=== PATIENT | female | born 1970 | race Caucasian/White ===

== ENCOUNTER 2017-05-10 06:54 | Day surgery (SDC) | payer SELFPAY ==
[2017-05-08 13:44] VITALS: BMI 31.1
[2017-05-10] MEDS ORDERED: LIDOCAINE HCL 1%, 10 MG/ML (20ML VIAL) ONE (07:25)
[2017-05-10] MEDS ORDERED: EPINEPHrine/PF 1 MG/1 ML (1:1,000) AMPULE ONE (07:25)
[2017-05-10] MEDS ORDERED: HEPARIN NA (PORCINE) 5,000 UNITS/ML 1ML VIAL ONE (07:40)
[2017-05-10] MEDS ORDERED: ceFAZolin SODIUM 1 GM VIAL ONE ×3 (07:41→17:04)
[2017-05-10] MEDS ORDERED: LIDOCAINE HCL/PF 2% SDV 5ML VIAL ONE (07:41)
[2017-05-10] MEDS ORDERED: DEXAMETHASONE SOD PHOSPHATE 4 MG/1 ML VIAL ONE (07:41)
[2017-05-10] MEDS ORDERED: PROPOFOL 20 ML ONE ×2 (07:42)
[2017-05-10] MEDS ORDERED: HYDROmorphone HCL/PF 1 MG/ML VIAL (FOR PYXIS CHARGING ONLY) ONE (07:42)
[2017-05-10] MEDS ORDERED: ROCURONIUM BROMIDE 50 MG/5 ML VIAL ONE ×2 (07:42→09:34)
[2017-05-10] MEDS ORDERED: SUCCINYLCHOLINE CHLORIDE 200 MG/10 ML VIAL ONE (07:42)
[2017-05-10] MEDS ORDERED: MIDAZOLAM HCL 2 MG/2 ML SINGLE DOSE VIAL ONE (07:46)
[2017-05-10] MEDS ORDERED: HEPARIN NA (PORCINE) 5,000 UNITS/ML 1ML VIAL SQ ONE (07:50)
[2017-05-10] MEDS ORDERED: SCOPOLAMINE HYDROBROMIDE 1 PATCH PATCH.TD72 ONE (08:05)
[2017-05-10] MEDS: ceFAZolin SODIUM 1 GM VIAL IVPB ONE ×2 (08:40→17:10)
[2017-05-10] MEDS ORDERED: LIDOCAINE 1%/EPI 1:100000 (50 ML MULTI DOSE VIAL) ONE (08:48)
[2017-05-10] MEDS ORDERED: LIDOCAINE 1%/EPI 1:100000 (50 ML MULTI DOSE VIAL) INF ONE (08:51)
[2017-05-10] MEDS ORDERED: BUPIVACAINE HCL/PF 0.25% (2.5MG/ML) 10 ML VIAL ONE (10:52)
[2017-05-10] MEDS ORDERED: BUPIVACAINE HCL/PF 0.25% (2.5MG/ML) 10 ML VIAL IJ ONE (11:19)
[2017-05-10] MEDS ORDERED: ACETAMINOPHEN INJECTION 100 ML IVPB ONE (13:18)
[2017-05-10] MEDS ORDERED: HYDROmorphone HCL CARPU-JECT 1 MG/1 ML DISP.SYRIN IVPUSH PRN (14:07)
[2017-05-10] MEDS ORDERED: DEXAMETHASONE SOD PHOSPHATE 4 MG/1 ML VIAL IVPUSH PRN (14:08)
[2017-05-10] MEDS ORDERED: ONDANSETRON 4 MG/2 ML VIAL IVPUSH PRN (14:08)
[2017-05-10] MEDS ORDERED: PROMETHAZINE HCL 25 MG/1 ML VIAL IVPB PRN (14:08)
[2017-05-10] MEDS ORDERED: HYDROmorphone *PCA* 10MG/50ML DISP.SYRIN PCA SCH (14:15)
[2017-05-10] MEDS ORDERED: morphine CARPU-JECT 10 MG/1 ML DISP.SYRIN IVPUSH PRN (14:24)
[2017-05-10] MEDS ORDERED: ONDANSETRON 4 MG/2 ML VIAL IVPB PRN (14:24)
[2017-05-10] MEDS ORDERED: LORAZEPAM CARPU-JECT 2 MG/ML DISP.SYRIN IM PRN (14:29)
[2017-05-10] MEDS ORDERED: LACTATED RINGERS SOLUTION 1,000 ML IV SCH (14:30)
[2017-05-10] MEDS: LORAZEPAM CARPU-JECT 2 MG/ML DISP.SYRIN IVPUSH ONE ×2 (15:02→18:21)
[2017-05-10] MEDS ORDERED: HYDROmorphone HCL CARPU-JECT 2 MG/1 ML DISP.SYRIN ONE (17:07)
[2017-05-10] MEDS: CEFAZOLIN (PRE-DOCKED) 50 ML IVPB SCH ×2 (18:21→20:43)
[2017-05-10] MEDS ORDERED: morphine CARPU-JECT 4 MG/1 ML DISP.SYRIN IVPUSH PRN (18:41)
--- NOTE | 2017-05-10 20:46 | PN ---
Progress Note (short form) - Note Progress Note: post op check. Ambulating, urinating VSSAF pain controlled c/o tingling left hand but has good sensation to light touch in all neurologic distributions, normal motor. MARGIE output low, all tissues viable and soft with good cap refill and no collections. Elevate left hand.
--- NOTE | 2017-05-10 23:55 | OP ---
DATE OF OPERATION: 05/10/2017 PREOPERATIVE DIAGNOSIS: Abdominal lipodystrophy. POSTOPERATIVE DIAGNOSIS: Abdominal lipodystrophy. PROCEDURE: Abdominoplasty with bilateral flank liposuction. ANESTHESIA: General endotracheal anesthesia. SURGEON: Jori Osuna M.D. DESCRIPTION OF PROCEDURE: The patient was marked in the holding area preoperatively awake and aware of incisions and resulting scars. She was given 5,000 units of subcutaneous heparin preoperatively. Sequential compression stockings were applied. She was brought to the operating room and placed in a supine position. A Smallwood catheter was placed. Sequential compression stockings were turned on. She was given 2 g of Ancef preoperatively, prepped and draped in the standard surgical fashion. A timeout was called. The patient, procedure, side, and site verified. An incision was made along the inferior border of the pannus crease. Dissection carried down to the level of the abdominal wall fascia. At this point, dissection carried along the abdominal wall fascia to the level of the umbilicus where the umbilicus was then circumcised and developed on a fiber fatty stalk at the base of the fascia. The abdominoplasty flaps were then elevated to the costal margins bilaterally and xiphoid process in the midline. Hemostasis was vigorously achieved and midline ligation was performed, first with a layer of buried [id number] 1 Prolene sutures along the midline, followed by a running locking line of 1 Prolene suture, one below the umbilicus and a separate above the umbilicus. The flap was then thinned in a subscarpa's plane using scissors. The wound was copiously irrigated with normal saline and hemostasis was once again meticulously achieved. The patient is flexed 30 degrees where the flap is transpositioned and the excess skin and fat is then excised. The position at the umbilicus is marked. A Star-Trek pattern defect is made in the position of the new umbilicus and a core of fat is removed deep to this incision. The umbilicus is then converted into a Star-Trek pattern shape with the inferior flap of the abdominoplasty flap skin is then inset at the notch of the inferior base of the umbilicus. The umbilicus was then secured to its new position with a series of buried deep dermal 3-0 Monocryl suture followed by a series of interrupted 4-0 and 5-0 nylon sutures. Size 10 Flat MARGIE drains are brought out through the lateral extent of the incisions. The left more drain is placed along the inferior portion of the incision and the right more drain is placed along the superior more portion of the incision. The drains were secured with 2-0 silk drain sutures. Prior to closure, tumescent infiltration is then infiltrated with a wetting solution. The wetting solution is per each liter, 1 L of normal saline with an ampule of 1:100,000 epinephrine and 20 mL of 1% lidocaine plain. At this point, a total of 1,300 mL of wetting solution is infiltrated into the bilateral flanks and while this is being able to work, the abdominal closure is then performed. The abdominal closure was performed with a Inga's layer superficial fascial system series of buried 2-0 Vicryl suture, followed by a series of interrupted buried deep dermal 3-0 Monocryl sutures, followed by running subcuticular 3-0 Monocryl suture. All tissues are pink and viable with good capillary refill at the distal edges of the abdominoplasty flap. The drains are placed to bulb suction. ABD gauze and 4 x 4 gauze are applied. Steri-Strips are applied lengthwise along the incision line. An abdominal binder is placed and the patient is transferred to a hospital bed in a flexed position. She tolerated the procedure well and was transferred to recovery without complication. Please note that the lipoaspirate is 550 mL from the left flank and 550 mL from the right flank with a total lipoaspirate for the case of 1,100 mL. JORI OSUNA M.D. [id number]
[2017-05-11] MEDS: morphine CARPU-JECT 4 MG/1 ML DISP.SYRIN IVPUSH PRN ×2 (00:37→06:01)
[2017-05-11] MEDS: CEFAZOLIN (PRE-DOCKED) 50 ML IVPB SCH ×2 (02:12→09:08)
[2017-05-11 06:21] VITALS: BP 119/73; PULSE 88; TEMP 98.4
[2017-05-11] MEDS: BACITRACIN 30 GM TUBE TOPICAL OINTMENT TP SCH ×2 (07:37→10:01)
--- NOTE | 2017-05-11 09:05 | PATH ---
Surgical Pathology Report Patient Name: EDD LUCAS Med. Rec. #: [id number] /Age/Gender: 1970 (Age: 46) / F Account: [id number] Location: [facility] MED/SURG Taken: 05/10/2017 Received: 05/10/2017 Reported: 05/11/2017 Physicians: Jori Jones Specimen(s) Received ABDOMINAL SIKIN AND TISSUE Clinical History Cosmetic Final Diagnosis SKIN AND SOFT TISSUE, ABDOMEN, ABDOMINOPLASTY: UNREMARKABLE SKIN AND SUBCUTANEOUS ADIPOSE TISSUE (gross only). Electronically Signed Medhat Dillard M.D. Gross Description Received fresh labeled "abdominal skin and tissue," is a 2177 g aggregate of 2 yoder, triangular, unoriented portions of skin with underlying soft tissue measuring 37.0 x 26.0 x 4.5 cm in aggregate. The epidermal surfaces are unremarkable. Sectioning reveals unremarkable yellow, lobulated adipose tissue. No lesions or areas of hemorrhage or necrosis are identified. No sections are submitted, gross only. /05/10/2017 [facility]/05/10/2017
[2017-05-11] MEDS: HEPARIN NA (PORCINE) 5,000 UNITS/ML 1ML VIAL SQ SCH ×2 (09:14→10:01)
[2017-05-11] MEDS ORDERED: ACETAMINOPHEN 1000 MG/100 ML VIAL (NON FORMULARY) IVPB ONE (09:24)
[2017-05-11] MEDS ORDERED: IBUPROFEN 800 MG/8 ML IJ IVPB ONE (09:24)
--- NOTE | 2017-05-11 09:28 | PN ---
Progress Note (short form) - Note Progress Note: Post op day#1.S/P Abdominoplasty with liposuction under GA uneventful.Patient stable and c/o pain score of 8-10/10.So ordered Ofirmev and Cadolor ivpb.Patient to be DC today so avoiding narcotics.No any anesthesia related problem.Patient Dc from the anesthesia care.
--- NOTE | 2017-05-11 11:30 | PN ---
Progress Note (short form) - Note Progress Note: Al ltissues viable, healing well. MARGIE output minimal, VSS AF Hand symptoms resolved. Ambulating, using IS OK for discharge.
== END 2017-05-11 13:04 | disposition home or self-care (01) ==
LOC: JASU-SURG 06:54 → JASUSAT 06:54 → J8W 17:50 → JASUSAT 05-11 13:04
PROVIDERS: ATTEND Plastic Surgery
CPT/HCPCS: 84703; 88300-TC; 94760; J1644

== ENCOUNTER 2017-06-18 17:46 | Inpatient (IN) | payer OTHER ==
[2017-06-18] MEDS ORDERED: SODIUM CHLORIDE 1,000 ML IV STA (18:38)
[2017-06-18] MEDS ORDERED: ONDANSETRON 4 MG/2 ML VIAL IVPUSH ONE (18:42)
--- NOTE | 2017-06-18 18:48 | PDOC ---
History of Present Illness - General Chief Complaint: Diarrhea Stated Complaint: PCP ADMIT Time Seen by Provider: 06/18/17 18:38 History Source: Patient - History of Present Illness Timing/Duration: reports: other Quality: reports: severe Past History - Past Medical History Allergies/Adverse Reactions: Allergies Allergy/AdvReac Type Severity Reaction Status Date / Time No Known Allergies Allergy Verified 06/18/17 17:51 Home Medications: Ambulatory Orders Acetaminophen [Tylenol] 650 mg PO PRN PRN 05/08/17 Lorazepam 1 mg PO PRN PRN 05/08/17 Clindamycin [Cleocin -] 300 mg PO TID 05/10/17 Omeprazole 20 mg PO DAILY 05/10/17 Ranitidine [Zantac -] 150 mg PO DAILY 05/10/17 Anemia: No Asthma: No Cancer: No Cardiac Disorders: No CVA: No COPD: No CHF: No Dementia: No Diabetes: (BORDERLINE) GI Disorders: Yes (GERD) Disorders: No HTN: No Hypercholesterolemia: No Liver Disease: No Seizures: No Thyroid Disease: No - Surgical History Abdominal Surgery: Yes (POLYPS REMOVED FROM STOMACH) Appendectomy: No Cardiac Surgery: No Cholecystectomy: No Lung Surgery: No Neurologic Surgery: No Orthopedic Surgery: No - Psycho/Social/Smoking Cessation Hx Anxiety: No Suicidal Ideation: No Smoking Status: No Smoking History: Never smoked Have you smoked in the past 12 months: No Number of Cigarettes Smoked Daily: 0 Information on smoking cessation initiated: No Hx Alcohol Use: Yes (SOCIALLY) Drug/Substance Use Hx: No Substance Use Type: Alcohol Hx Substance Use Treatment: No Review of Systems - Review of Systems Constitutional: No: Chills, Fever ABD/GI: Yes: Diarrhea, Nausea, Vomiting. No: Blood Streaked Bowels, Rectal Bleeding, Abdominal cramping, Tarry Stools : No: Dysuria *Physical Exam - Vital Signs Last Vital Signs Temp Pulse Resp BP Pulse Ox 98.1 F 95 H 18 105/76 99 06/18/17 17:47 06/18/17 17:47 06/18/17 17:47 06/18/17 17:47 06/18/17 17:47 - Physical Exam General Appearance: Yes: Appropriately Dressed, Mild Distress HEENT: positive: Normal Voice Neck: positive: Supple Respiratory/Chest: negative: Respiratory Distress Gastrointestinal/Abdominal: positive: Normal Bowel Sounds, Soft, Other (no significant tenderness). negative: Guarding, Rebound Musculoskeletal: negative: CVA Tenderness Integumentary: positive: Dry, Warm Neurologic: positive: Fully Oriented, Alert, Normal Mood/Affect Medical Decision Making - Medical Decision Making 06/18/17 18:43 46 -year-old female status post tummy tuck surgery last month complicated by c. difficile, completed course of po flagyl (of note, did not tolerate medication well), and was feeling better until 2 days ago when symptoms recurred. Complaining of numerous episodes of non-bloody watery diarrhea with intractable nausea, vomiting. Continues to have some post-op abdominal discomfort that has not changed from baseline. No f/c. 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 Of note, pt had CT 06/06 without SBO or other acute pathology. No CT needed in ED. A/w pmd c/s to admit 06/18/17 18:53 06/18/17 18:56 Case d/w Dr Quintero and pt admitted to Dr Fletcher. 06/18/17 18:57 Signed out to CHRISTOPHER Hargrove pending labs *DC/Admit/Observation/Transfer Diagnosis at time of Disposition: Diarrhea Qualifiers: Diarrhea type: unspecified type Qualified Code(s): R19.7 - Diarrhea, unspecified - Discharge Dispostion Condition at time of disposition: Fair Admit: Yes - Referrals Referrals: Clayton Fletcher MD [Primary Care Provider] -
[2017-06-18] MEDS ORDERED: METRONIDAZOLE 500 MG PREMIXED 100 ML IVPB ONE ×2 (18:50→19:29)
[2017-06-18] MEDS ORDERED: ONDANSETRON 4 MG/2 ML VIAL ONE (19:29)
[2017-06-18 19:54] LABS: BASOPHIL 1.1 % (0-2.0); EOSINOPHIL 2.9 % (0-4.5); MCH 28.8 pg (25.7-33.7); MCHC 32.9 g/dl (32.0-36.0); MEAN CELL VOLUME 87.5 fl (80-96); MEAN PLT VOLUME 7.9 fl (7.5-11.1); PLATELET COUNT 358 K/MM3 (134-434); RDW 13.7 % (11.6-15.6); WHITE BLOOD COUNT 7.8 K/mm3 (4.0-10.0)
[2017-06-18 20:06] LABS: INR 1.05 (0.82-1.09); PROTHROMBIN TIME (PATIENT) 11.6 SEC (9.98-11.88)
[2017-06-18 20:26] LABS: ALBUMIN 3.2 g/dl (3.4-5.0); ALK PHOS 84 U/L (45-117); ANION GAP 6 (8-16); BILIRUBIN,TOTAL 0.2 mg/dL (0.2-1.0); CALCIUM 8.6 mg/dL (8.5-10.1); CO2 27 mmol/L (21-32); CREATININE 0.7 mg/dL (0.55-1.02); GLUCOSE,RANDOM 108 mg/dL (74-106); SGOT/AST 13 U/L (15-37); SGPT/ALT 16 U/L (12-78)
[2017-06-18] MEDS ORDERED: VANCOMYCIN 250 MG/5 ML ORAL SOLUTION PO ONE (20:30)
[2017-06-18 20:51] LABS: URINE APPEARANCE CLEAR; URINE BILIRUBIN NEGATIVE (NEGATIVE); URINE BLOOD 2+ (NEGATIVE); URINE COLOR COLORLESS; URINE GLUCOSE (UA) NEGATIVE (NEGATIVE); URINE KETONE NEGATIVE (NEGATIVE); URINE LEUK ESTERASE NEGATIVE (NEGATIVE); URINE NITRITE NEGATIVE (NEGATIVE); URINE PROTEIN NEGATIVE (NEGATIVE); URINE UROBILINOGEN NEGATIVE mg/dL (0.2-1.0)
[2017-06-18] MEDS ORDERED: ACETAMINOPHEN 325 MG TABLET (FP) PO PRN (20:58)
[2017-06-18] MEDS ORDERED: ONDANSETRON 4 MG/2 ML VIAL IVPB PRN (20:58)
[2017-06-18 21:12] LABS: URINE RBC 4 /hpf (0-3); URINE WBC <1 /hpf (3-5)
[2017-06-18] MEDS: D5-1/2NS+20 MEQ KCL - 1,000 ML IV SCH (21:54)
[2017-06-18 23:13] VITALS: BMI 28.9
[2017-06-19] MEDS: VANCOMYCIN 250 MG/5 ML ORAL SOLUTION PO SCH ×4 (00:11→17:56)
[2017-06-19] MEDS: HEPARIN NA (PORCINE) 5,000 UNITS/ML 1ML VIAL SQ SCH ×3 (00:15→21:38)
[2017-06-19] MEDS: METRONIDAZOLE 500 MG PREMIXED 100 ML IVPB SCH ×2 (01:42→09:02)
[2017-06-19 07:15] LABS: BASOPHIL 0.9 % (0-2.0); EOSINOPHIL 3.6 % (0-4.5); MCH 29.7 pg (25.7-33.7); MCHC 33.6 g/dl (32.0-36.0); MEAN CELL VOLUME 88.5 fl (80-96); MEAN PLT VOLUME 7.8 fl (7.5-11.1); NEUTROPHILS 53.8 % (42.8-82.8); PLATELET COUNT 351 K/MM3 (134-434); RDW 13.8 % (11.6-15.6); WHITE BLOOD COUNT 7.4 K/mm3 (4.0-10.0)
[2017-06-19 07:48] LABS: ALBUMIN 3.2 g/dl (3.4-5.0); ALK PHOS 74 U/L (45-117); ANION GAP 4 (8-16); BILIRUBIN,TOTAL 0.3 mg/dL (0.2-1.0); CALCIUM 8.6 mg/dL (8.5-10.1); CO2 30 mmol/L (21-32); CREATININE 0.6 mg/dL (0.55-1.02); GLUCOSE,RANDOM 101 mg/dL (74-106); SGOT/AST 11 U/L (15-37); SGPT/ALT 14 U/L (12-78); TOT PROT 6.8 g/dl (6.4-8.2)
[2017-06-19] MEDS: PANTOPRAZOLE 40 MG TABLET (FP) PO SCH (09:03)
--- NOTE | 2017-06-19 09:15 | EKG ---
Test Reason : Blood Pressure : / mmHG Vent. Rate : 068 BPM Atrial Rate : 068 BPM P-R Int : 162 ms QRS Dur : 080 ms QT Int : 408 ms P-R-T Axes : 060 -22 -01 degrees QTc Int : 433 ms NORMAL SINUS RHYTHM NORMAL ECG NO PREVIOUS ECGS AVAILABLE Confirmed by NATO RHODES, VIV ([id number]) on 06/19/2017 9:15:10 AM Referred By: FLORENTIN ALMANZAR Confirmed By:VIV DUTTON MD
[2017-06-19] MEDS: D5-1/2NS+20 MEQ KCL - 1,000 ML IV SCH ×2 (14:27→21:37)
--- NOTE | 2017-06-19 15:42 | CONSULT ---
Consult Consult Specialty:: infectious disease Referred by:: Reason for Consultation:: dirrhoea - History of Present Illness Chief Complaint: dirrhoea History of Present Illness: 46 -year-old female status post tummy tuck surgery last month complicated by c. difficile, completed course of po flagyl according to the patient she did not tolerate but she ended up completing the course patient now since monday starting having dirrhoea and was again to admitted with profuse she was started on flagyl and vanco this is her 2nd episode now after being treated once her stool has been send for ova and parasite - History Source History Provided By: Patient Limitations to Obtaining History: No Limitations - Past Medical History ...LMP: 04/17/17 ...: No - Alcohol/Substance Use Hx Alcohol Use: Yes (SOCIALLY) - Smoking History Smoking history: Never smoked Have you smoked in the past 12 months: No Aproximately how many cigarettes per day: 0 Home Medications - Allergies Allergies/Adverse Reactions: Allergies Allergy/AdvReac Type Severity Reaction Status Date / Time No Known Allergies Allergy Verified 06/18/17 17:51 - Home Medications Home Medications: Ambulatory Orders Acetaminophen [Tylenol] 650 mg PO PRN PRN 05/08/17 Lorazepam 1 mg PO PRN PRN 05/08/17 Clindamycin [Cleocin -] 300 mg PO TID 05/10/17 Omeprazole 20 mg PO DAILY 05/10/17 Ranitidine [Zantac -] 150 mg PO DAILY 05/10/17 Review of Systems - Review of Systems Constitutional: reports: Weakness Eyes: reports: No Symptoms HENT: reports: No Symptoms Neck: reports: No Symptoms Cardiovascular: reports: No Symptoms Respiratory: reports: No Symptoms Gastrointestinal: reports: Diarrhea Genitourinary: reports: No Symptoms Musculoskeletal: reports: No Symptoms Integumentary: reports: No Symptoms Neurological: reports: No Symptoms Endocrine: reports: No Symptoms Hematology/Lymphatic: reports: No Symptoms Psychiatric: reports: No Symptoms Physical Exam Vital Signs: Vital Signs Temperature 97.9 F 06/19/17 14:26 Pulse Rate 59 L 06/19/17 14:26 Respiratory Rate 20 06/19/17 14:26 Blood Pressure 94/54 06/19/17 14:26 O2 Sat by Pulse Oximetry (%) 98 06/19/17 09:00 Constitutional: Yes: Well Nourished, No Distress, Calm Eyes: Yes: Conjunctiva Clear HENT: Yes: Atraumatic Neck: Yes: Supple, Trachea Midline Respiratory: Yes: Regular, CTA Bilaterally Gastrointestinal: Yes: Normal Bowel Sounds, Soft Musculoskeletal: Yes: WNL Extremities: Yes: WNL Wound/Incision: Yes: Clean/Dry Neurological: Yes: Alert, Oriented Psychiatric: Yes: Alert, Oriented Labs: CBC, BMP 06/19/17 05:40 06/19/17 05:40 Assessment/Plan patient with diorrhoea again i think has chances of having cdiff i ahve ordered cdiff studies r/o recurrent cdiff dirrhoea plan will stop flagyl continue vanco await for all results rest as per primary
--- NOTE | 2017-06-19 17:03 | HP ---
Admitting History and Physical - Primary Care Physician PCP: Clayton Fletcher - Admission Chief Complaint: DIARRHEA/+CDIFF History of Present Illness: 46 -year-old female status post tummy tuck surgery last month complicated by c. difficile, completed course of po flagyl (of note, did not tolerate medication well), and was feeling better until 2 days ago when symptoms recurred. Complaining of numerous episodes of non-bloody watery diarrhea with intractable nausea, vomiting. Continues to have some post-op abdominal discomfort that has not changed from baseline. No f/c. 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 development professor, Dr Cho, sent her in for admission for IV abx History Source: Patient - Past Medical History ...LMP: 04/17/17 ...: No - Smoking History Smoking history: Never smoked Have you smoked in the past 12 months: No Aproximately how many cigarettes per day: 0 - Alcohol/Substance Use Hx Alcohol Use: Yes (SOCIALLY) Home Medications - Allergies Allergies/Adverse Reactions: Allergies Allergy/AdvReac Type Severity Reaction Status Date / Time No Known Allergies Allergy Verified 06/18/17 17:51 - Home Medications Home Medications: Ambulatory Orders Acetaminophen [Tylenol] 650 mg PO PRN PRN 05/08/17 Lorazepam 1 mg PO PRN PRN 05/08/17 Clindamycin [Cleocin -] 300 mg PO TID 05/10/17 Omeprazole 20 mg PO DAILY 05/10/17 Ranitidine [Zantac -] 150 mg PO DAILY 05/10/17 Review of Systems - Review of Systems Constitutional: reports: Malaise Eyes: reports: No Symptoms HENT: reports: No Symptoms Neck: reports: No Symptoms Cardiovascular: reports: No Symptoms Respiratory: reports: No Symptoms Gastrointestinal: reports: Diarrhea Musculoskeletal: reports: No Symptoms Integumentary: reports: No Symptoms Neurological: reports: No Symptoms Endocrine: reports: No Symptoms Hematology/Lymphatic: reports: No Symptoms Psychiatric: reports: No Symptoms Physical Examination Vital Signs: Vital Signs Temperature 97.9 F 06/19/17 14:26 Pulse Rate 59 L 06/19/17 14:26 Respiratory Rate 20 06/19/17 14:26 Blood Pressure 94/54 06/19/17 14:26 O2 Sat by Pulse Oximetry (%) 98 06/19/17 09:00 Constitutional: Yes: Mild Distress Eyes: Yes: WNL HENT: Yes: WNL Neck: Yes: WNL Cardiovascular: Yes: WNL Respiratory: Yes: WNL Gastrointestinal: Yes: Distention, Tenderness Renal/: Yes: WNL Musculoskeletal: Yes: WNL Extremities: Yes: WNL Edema: No Peripheral Pulses WNL: Yes Integumentary: Yes: WNL Wound/Incision: Yes: Clean/Dry Neurological: Yes: WNL ...Motor Strength: WNL Psychiatric: Yes: WNL Labs: CBC, BMP 06/19/17 05:40 06/19/17 05:40 Problem List - Problems (1) Diarrhea Code(s): R19.7 - DIARRHEA, UNSPECIFIED Qualifiers: Diarrhea type: infectious Qualified Code(s): A09 - Infectious gastroenteritis and colitis, unspecified (2) Headache Code(s): R51 - HEADACHE Qualifiers: Headache type: unspecified Assessment/Plan IV ABX ID CONSULT CHECK STOOL CX IVF
[2017-06-19] MEDS: LACTOBACILLUS ACIDOPHILUS 1 EACH TAB (FP) PO SCH (17:31)
--- NOTE | 2017-06-19 18:01 | CON.GI ---
Consult Consult Specialty:: gastroenterology Referred by:: Clayton Fletcher - History of Present Illness History of Present Illness: 46 y/o female s/p tummy tuck surgery April. @ days later developed diarrhea. SHe saw Dr Hamm first of May and was started on Flagyl 500mg qid for 10 days which provided completer relief of her symptoms. Dats later she developed persistent diarrhea 10times per day, non bloody associated with abdominaql pain and poor appetite. - History Source History Provided By: Patient - Past Medical History ...LMP: 04/17/17 ...: No - Alcohol/Substance Use Hx Alcohol Use: Yes (SOCIALLY) - Smoking History Smoking history: Never smoked Have you smoked in the past 12 months: No Aproximately how many cigarettes per day: 0 Home Medications - Allergies Allergies/Adverse Reactions: Allergies Allergy/AdvReac Type Severity Reaction Status Date / Time No Known Allergies Allergy Verified 06/18/17 17:51 - Home Medications Home Medications: Ambulatory Orders Acetaminophen [Tylenol] 650 mg PO PRN PRN 05/08/17 Lorazepam 1 mg PO PRN PRN 05/08/17 Clindamycin [Cleocin -] 300 mg PO TID 05/10/17 Omeprazole 20 mg PO DAILY 05/10/17 Ranitidine [Zantac -] 150 mg PO DAILY 05/10/17 Review of Systems - Review of Systems Constitutional: denies: Fever Eyes: denies: Blurred Vision HENT: denies: Difficult Swallowing Neck: denies: Decreased ROM Cardiovascular: denies: Chest Pain Respiratory: denies: Cough Gastrointestinal: reports: Abdominal Pain (--resolved), Diarrhea (--improved tpday after receiving Flagyl and Vancomycin) Physical Exam-GI Vital Signs: Vital Signs Temperature 97.9 F 06/19/17 14:26 Pulse Rate 59 L 06/19/17 14:26 Respiratory Rate 20 06/19/17 14:26 Blood Pressure 94/54 06/19/17 14:26 O2 Sat by Pulse Oximetry (%) 98 06/19/17 09:00 Constitutional: Yes: Well Nourished, Poor Hygeine HENT: Yes: Atraumatic Neck: Yes: Supple Cardiovascular: Yes: Regular Rate and Rhythm Respiratory: Yes: Regular, CTA Bilaterally ...Palpate: Yes: Soft. No: Firm/Rigid, Guarding, Hepatomegaly, Mass, Pulsatile Mass, Splenomegaly, Tenderness Labs: CBC, BMP 06/19/17 05:40 06/19/17 05:40 INR, PTT INR 1.05 (0.82-1.09) 06/18/17 19:34 Problem List - Problems (1) Clostridium difficile colitis Assessment/Plan: --relapsing R> will need 4 weeks of vancomycin 250mg qid then every other day for 1 week then --Monday low fiber , lacotse free diet Code(s): A04.7 - ENTEROCOLITIS DUE TO CLOSTRIDIUM DIFFICILE
[2017-06-19] MEDS ORDERED: VANCOMYCIN 250 MG/5 ML ORAL SOLUTION PO ONE (18:51)
[2017-06-19] MEDS: IBUPROFEN 400 MG TABLET (FP) PO PRN (21:38)
[2017-06-20] MEDS: VANCOMYCIN 250 MG/5 ML ORAL SOLUTION PO SCH ×4 (00:14→18:13)
[2017-06-20] MEDS: D5-1/2NS+20 MEQ KCL - 1,000 ML IV SCH ×3 (02:45→22:10)
[2017-06-20] MEDS: PANTOPRAZOLE 40 MG TABLET (FP) PO SCH (10:29)
[2017-06-20] MEDS: HEPARIN NA (PORCINE) 5,000 UNITS/ML 1ML VIAL SQ SCH ×2 (10:29→21:05)
[2017-06-20] MEDS: LACTOBACILLUS ACIDOPHILUS 1 EACH TAB (FP) PO SCH (10:29)
[2017-06-20] MEDS: IBUPROFEN 400 MG TABLET (FP) PO PRN ×2 (12:47→20:56)
--- NOTE | 2017-06-20 14:43 | PN ---
Progress Note, Physician History of Present Illness: stable still has loose bowel movement - Current Medication List Current Medications: Active Medications Acetaminophen (Tylenol -) 650 mg PO Q4H PRN PRN Reason: FEVER OR PAIN Last Admin: 06/19/17 11:01 Dose: 650 mg Heparin Sodium (Porcine) (Heparin -) 5,000 unit SQ BID [facility] Last Admin: 06/20/17 10:29 Dose: Not Given Potassium Chloride/Dextrose/Sod Cl (D5-1/2ns+20 Meq Kcl -) 1,000 mls @ 75 mls/ hr IV ASDIR [facility] Last Admin: 06/20/17 02:45 Dose: 75 mls/hr Ibuprofen (Motrin -) 400 mg PO Q6H PRN PRN Reason: PAIN Last Admin: 06/20/17 12:47 Dose: 400 mg Lactobacillus Acidophilus (Bacid -) 1 tab PO DAILY [facility] Last Admin: 06/20/17 10:29 Dose: Not Given Ondansetron HCl (Zofran Injection) 4 mg IVPB Q6H PRN PRN Reason: NAUSEA Pantoprazole Sodium (Protonix -) 40 mg PO DAILY [facility] Last Admin: 06/20/17 10:29 Dose: 40 mg Vancomycin HCl (Vancomycin Oral Solution) 250 mg PO Q6HPO [facility] Last Admin: 06/20/17 11:55 Dose: 250 mg - Objective Vital Signs: Vital Signs Temperature 98.6 F 06/20/17 14:01 Pulse Rate 72 06/20/17 14:01 Respiratory Rate 18 06/20/17 14:01 Blood Pressure 103/68 06/20/17 14:01 O2 Sat by Pulse Oximetry (%) 100 06/20/17 09:00 Constitutional: Yes: No Distress, Calm Cardiovascular: Yes: Regular Rate and Rhythm Respiratory: Yes: Regular, CTA Bilaterally Gastrointestinal: Yes: Normal Bowel Sounds, Soft Musculoskeletal: Yes: WNL Extremities: Yes: WNL Neurological: Yes: Alert, Oriented Psychiatric: Yes: Alert, Oriented Labs: CBC, BMP 06/19/17 05:40 06/19/17 05:40 INR, PTT INR 1.05 (0.82-1.09) 06/18/17 19:34 Assessment/Plan patient with diorrhoea again i think has chances of having cdiff i ahve ordered cdiff studies recurrent cdiff dirrhoea plan continue vanco monitor loose stools await for all cx rest as per the team
--- NOTE | 2017-06-20 16:39 | PN ---
Progress Note, Physician Chief Complaint: AWAKE ALERT LESS DIARRHEA - Current Medication List Current Medications: Active Medications Acetaminophen (Tylenol -) 650 mg PO Q4H PRN PRN Reason: FEVER OR PAIN Last Admin: 06/19/17 11:01 Dose: 650 mg Heparin Sodium (Porcine) (Heparin -) 5,000 unit SQ BID [facility] Last Admin: 06/20/17 10:29 Dose: Not Given Potassium Chloride/Dextrose/Sod Cl (D5-1/2ns+20 Meq Kcl -) 1,000 mls @ 75 mls/ hr IV ASDIR [facility] Last Admin: 06/20/17 02:45 Dose: 75 mls/hr Ibuprofen (Motrin -) 400 mg PO Q6H PRN PRN Reason: PAIN Last Admin: 06/20/17 12:47 Dose: 400 mg Lactobacillus Acidophilus (Bacid -) 1 tab PO DAILY [facility] Last Admin: 06/20/17 10:29 Dose: Not Given Ondansetron HCl (Zofran Injection) 4 mg IVPB Q6H PRN PRN Reason: NAUSEA Pantoprazole Sodium (Protonix -) 40 mg PO DAILY [facility] Last Admin: 06/20/17 10:29 Dose: 40 mg Vancomycin HCl (Vancomycin Oral Solution) 250 mg PO Q6HPO [facility] Last Admin: 06/20/17 11:55 Dose: 250 mg - Objective Vital Signs: Vital Signs Temperature 98.6 F 06/20/17 14:01 Pulse Rate 72 06/20/17 14:01 Respiratory Rate 18 06/20/17 14:01 Blood Pressure 103/68 06/20/17 14:01 O2 Sat by Pulse Oximetry (%) 100 06/20/17 09:00 Constitutional: Yes: Mild Distress Eyes: Yes: WNL HENT: Yes: WNL Neck: Yes: WNL Cardiovascular: Yes: WNL Respiratory: Yes: WNL Gastrointestinal: Yes: Tenderness Genitourinary: Yes: WNL Musculoskeletal: Yes: WNL Extremities: Yes: WNL Edema: No Peripheral Pulses WNL: Yes Integumentary: Yes: WNL Wound/Incision: Yes: Clean/Dry Neurological: Yes: WNL ...Motor Strength: WNL Psychiatric: Yes: WNL Labs: CBC, BMP 06/19/17 05:40 06/19/17 05:40 INR, PTT INR 1.05 (0.82-1.09) 06/18/17 19:34 Problem List - Problems (1) Diarrhea Code(s): R19.7 - DIARRHEA, UNSPECIFIED Qualifiers: Diarrhea type: infectious Qualified Code(s): A09 - Infectious gastroenteritis and colitis, unspecified (2) Headache Code(s): R51 - HEADACHE Qualifiers: Headache type: unspecified Assessment/Plan CDIFF COLITIS ON VANCO PROBIOTIC GI EVAL APPRECIATED PLASTIC SX FOLLOW UP
--- NOTE | 2017-06-20 18:27 | PN ---
GI Progress Note Subjective: diarrhea is less tolerating vanco po - Objective Vital Signs: Vital Signs Temperature 98.6 F 06/20/17 14:01 Pulse Rate 72 06/20/17 14:01 Respiratory Rate 18 06/20/17 14:01 Blood Pressure 103/68 06/20/17 14:01 O2 Sat by Pulse Oximetry (%) 100 06/20/17 09:00 Constitutional: Well Nourished, Poor Hygeine HENT: Yes: Atraumatic Neck: Yes: Supple Cardiovascular: Yes: Regular Rate and Rhythm Respiratory: Yes: CTA Bilaterally ...Palpate: Yes: Soft. No: Firm/Rigid, Hepatomegaly, Mass, Pulsatile Mass, Splenomegaly, Tenderness Labs: CBC, BMP 06/19/17 05:40 06/19/17 05:40 INR, PTT INR 1.05 (0.82-1.09) 06/18/17 19:34 Problem List - Problems (1) Clostridium difficile colitis Assessment/Plan: --resolving R> will need social work professor to help approve medication to avoid readmission Code(s): A04.7 - ENTEROCOLITIS DUE TO CLOSTRIDIUM DIFFICILE
[2017-06-21] MEDS ORDERED: PT OWN MED DRAWER 7, Y5N ONE ×2 (00:21→06:01)
[2017-06-21] MEDS: VANCOMYCIN 250 MG/5 ML ORAL SOLUTION PO SCH ×3 (00:25→11:29)
[2017-06-21] MEDS: D5-1/2NS+20 MEQ KCL - 1,000 ML IV SCH (06:06)
[2017-06-21 06:14] VITALS: PULSE 73
[2017-06-21 08:30] VITALS: BP 118/72; TEMP 98.2
[2017-06-21] MEDS: HEPARIN NA (PORCINE) 5,000 UNITS/ML 1ML VIAL SQ SCH (10:00)
[2017-06-21] MEDS: LACTOBACILLUS ACIDOPHILUS 1 EACH TAB (FP) PO SCH (10:00)
[2017-06-21] MEDS: PANTOPRAZOLE 40 MG TABLET (FP) PO SCH (10:00)
--- NOTE | 2017-06-21 10:24 | CONSULT ---
- Consultation REQUESTING PROVIDER: Meredith Jones MD CONSULT REQUEST: We have been asked to surgically evaluate this patient for ? RLQ abdominal pain. PCP:Clayton Fletcher HISTORY OF PRESENT ILLNESS: 46 y/o female had panniculectomy and liposuction 05/13; she developed C. diff colitis post op and ? abdominal pain ? ; w/u at [facility] was negative for intrabdominal pathology; she was recently admitted to [facility] w/ recurrent/persistent symptoms c/w C. diff colitis; she was again c/o "RLQ pain ". She actually c/o pain in the right lateral aspect of her panniculectomy scar close to the anterior superior iliac spine and extending posterolaterally; she denies n/v/cramps or anyother GI c/o. She is eaying and moving her bowels and states her diarrhea has abated. PMHx: PSHx: C-S and as above Home Medications Medication Instructions Recorded Acetaminophen [Tylenol] 650 mg PO PRN PRN 05/08/17 Lorazepam 1 mg PO PRN PRN 05/08/17 Clindamycin [Cleocin -] 300 mg PO TID 05/10/17 Omeprazole 20 mg PO DAILY 05/10/17 Ranitidine [Zantac -] 150 mg PO DAILY 05/10/17 Allergies Allergy/AdvReac Type Severity Reaction Status Date / Time No Known Allergies Allergy Verified 06/18/17 17:51 REVIEW OF SYSTEMS: as above only PHYSICAL EXAM: GENERAL: Awake, alert, and fully oriented, in no acute distress. HEAD: Normal with no signs of trauma. EYES: sclera anicteric, NECK: Normal ROM, supple without lymphadenopathy, JVD, or masses. ABDOMEN: Soft, nontender, not distended, no guarding, no rebound, no masses. No organomegaly. Healed surgical scars; no hernias; no signs of an acute surgical abdomen. MUSCULOSKELETAL: Normal ROM at all joints. No bony deformities or tenderness. No CVA tenderness. UPPER EXTREMITIES: 2+ pulses, warm, well-perfused. No cyanosis. Cap refill <2 seconds. No peripheral edema. LOWER EXTREMITIES: 2+ pulses, warm, well-perfused. No calf tenderness. No peripheral edema. NEUROLOGICAL: Normal speech, gait not observed. PSYCH: Cooperative. Good eye contact. Appropriate mood and affect. SKIN: Warm, dry, normal turgor, no rashes or lesions noted. Vital Signs Temperature 98.2 F 06/21/17 08:29 Pulse Rate 73 06/21/17 08:29 Respiratory Rate 16 06/21/17 08:29 Blood Pressure 118/72 06/21/17 08:29 O2 Sat by Pulse Oximetry (%) 96 06/20/17 21:00 Lab Results WBC 7.4 K/mm3 (4.0-10.0) 06/19/17 05:40 RBC 4.02 M/mm3 (3.60-5.2) 06/19/17 05:40 Hgb 11.9 GM/dL (10.7-15.3) 06/19/17 05:40 Hct 35.5 % (32.4-45.2) 06/19/17 05:40 MCV 88.5 fl (80-96) 06/19/17 05:40 MCHC 33.6 g/dl (32.0-36.0) 06/19/17 05:40 RDW 13.8 % (11.6-15.6) 06/19/17 05:40 Plt Count 351 K/MM3 (134-434) 06/19/17 05:40 Sodium 140 mmol/L (136-145) 06/19/17 05:40 Potassium 4.2 mmol/L (3.5-5.1) 06/19/17 05:40 Chloride 106 mmol/L (98-107) 06/19/17 05:40 Carbon Dioxide 30 mmol/L (21-32) 06/19/17 05:40 Anion Gap 4 (8-16) L 06/19/17 05:40 BUN 7 mg/dL (7-18) D 06/19/17 05:40 Creatinine 0.6 mg/dL (0.55-1.02) 06/19/17 05:40 Random Glucose 101 mg/dL (74-106) 06/19/17 05:40 Calcium 8.6 mg/dL (8.5-10.1) 06/19/17 05:40 INR 1.05 (0.82-1.09) 06/18/17 19:34 IMP: No evidence of an acute surgical abdomen; probable post surgical pain; no further w/u is required. PLAN: As per primary care team and Dr. Jones. Shmuel Gann MD FACS Visit type - Case Type Case Type: ED Admission - Emergency Emergency Visit: Yes ED Registration Date: 06/18/17 Care time: The patient presented to the Emergency Department on the above date and was hospitalized for further evaluation of their emergent condition. - New patient This patient is new to me today: Yes Date on this admission: 06/21/17 - Critical Care Critical Care patient: No
--- NOTE | 2017-06-21 10:44 | DS ---
Physical Examination Vital Signs: Vital Signs Temperature 98.2 F 06/21/17 08:29 Pulse Rate 73 06/21/17 08:29 Respiratory Rate 16 06/21/17 08:29 Blood Pressure 118/72 06/21/17 08:29 O2 Sat by Pulse Oximetry (%) 96 06/20/17 21:00 Constitutional: Yes: No Distress Eyes: Yes: WNL HENT: Yes: WNL Neck: Yes: WNL Cardiovascular: Yes: WNL Respiratory: Yes: WNL Gastrointestinal: Yes: Tenderness Renal/: Yes: WNL Musculoskeletal: Yes: WNL Extremities: Yes: WNL Edema: No Peripheral Pulses WNL: Yes Integumentary: Yes: WNL Wound/Incision: Yes: Open to air Neurological: Yes: WNL ...Motor Strength: WNL Psychiatric: Yes: WNL Labs: CBC, BMP 06/19/17 05:40 06/19/17 05:40 Discharge Summary Reason For Visit: DIARRHEA Current Active Problems Clostridium difficile colitis (Acute) Diarrhea (Acute) Procedures: Principal: labs/cx Hospital Course: admitted started on vanco improved will dc home on vanco po 4 weeks, patient needs follow up with plastic sx for abdominoplasty follow up, wound clean no infections Condition: Improved - Instructions Diet, Activity, Other Instructions: lactose free low fiber Referrals: Clayton Fletcher MD [Primary Care Provider] - Disposition: HOME - Home Medications Comprehensive Discharge Medication List: Ambulatory Orders Acetaminophen [Tylenol] 650 mg PO PRN PRN 05/08/17 Omeprazole 20 mg PO DAILY 05/10/17 Acetaminophen [Tylenol .Regular Strength -] 650 mg PO Q4H PRN #90 tablet MDD 6 06/21/17 Ibuprofen [Motrin -] 400 mg PO Q6H PRN #0 tablet 06/21/17 Lactobacillus Acidophilus [Bacid -] 1 tab PO DAILY #30 tab 06/21/17 Vancomycin Oral Solution 250 mg PO Q6HPO #120 ml 06/21/17
[2017-06-21] MEDS ORDERED: BANATROL PLUS POWDER PACKET PO SCH (14:00)
== END 2017-06-21 11:35 | disposition home or self-care (01) | DRG 248 ==
LOC: JER 17:46 → JERBED 18:56 → J7W 20:16
PROVIDERS: ADMIT Family Medicine; ATTEND Family Medicine
DX: A04.7 Enterocolitis due to Clostridium difficile (principal); R51 Headache
CPT/HCPCS: 36415; 80053; 81003; 81015; 83690; 84703; 85025; 85610; 87045; 87046; 87186; 87324; 87449; 93005; 93010; 99284-25

== ENCOUNTER 2017-10-31 11:25 | Emergency (ER) | payer OTHER ==
[2017-10-31 11:33] VITALS: BP 128/77; PULSE 71; TEMP 98; BMI 29.6
--- NOTE | 2017-10-31 12:37 | PDOC ---
History of Present Illness - General Chief Complaint: Pain Stated Complaint: ABD PAIN Time Seen by Provider: 10/31/17 12:27 - History of Present Illness Initial Comments: 10/31/17 12:37 47 yo F s/p panniculectomy and liposuction "tummy tuck" procedure 05/10/17/ [facility] complicated by enterocolitis 2/2 c.dif presents with generalized abdominal pain. Patient reports 1 1/2 week of diffuse abdominal bloating and dull, unremitting, generalized pain, worse with supine positioning. Also endorses nasuea without vomiting. Has frequent BM's, but difficulty passing flatus. Denies BPR, dark stools, dysuria, hematuria, vaginal bleeding, pelvic pain. Decreased PO intake. Avoids dairy, and greasy foods. Has been on multiple antibitoics including Flagyl and Vanc. Abdominal U/S (10/26/17 ) hepatic cyst. GI physician Dr. Paul Cho. 10/31/17 13:27 ED Course: CBC: Unremarkable Past History - Past Medical History Allergies/Adverse Reactions: Allergies Allergy/AdvReac Type Severity Reaction Status Date / Time No Known Allergies Allergy Verified 10/31/17 11:29 Home Medications: Ambulatory Orders Acetaminophen [Tylenol] 650 mg PO PRN PRN 05/08/17 Omeprazole 20 mg PO DAILY 05/10/17 Acetaminophen [Tylenol .Regular Strength -] 650 mg PO Q4H PRN #90 tablet MDD 6 06/21/17 Ibuprofen [Motrin -] 400 mg PO Q6H PRN #0 tablet 06/21/17 Lactobacillus Acidophilus [Bacid -] 1 tab PO DAILY #30 tab 06/21/17 Vancomycin Oral Solution 250 mg PO Q6HPO #120 ml 06/21/17 Anemia: No Asthma: No Cancer: No Cardiac Disorders: No CVA: No COPD: No CHF: No Dementia: No Diabetes: (BORDERLINE) GI Disorders: Yes (GERD) Disorders: No HTN: No Hypercholesterolemia: No Liver Disease: No Seizures: No Thyroid Disease: No - Surgical History Abdominal Surgery: Yes (POLYPS REMOVED FROM STOMACH, TUMMY TUCK) Appendectomy: No Cardiac Surgery: No Cholecystectomy: No Lung Surgery: No Neurologic Surgery: No Orthopedic Surgery: No - Suicide/Smoking/Psychosocial Hx Smoking Status: No Smoking History: Never smoked Have you smoked in the past 12 months: No Number of Cigarettes Smoked Daily: 0 Information on smoking cessation initiated: No Hx Alcohol Use: No Drug/Substance Use Hx: No Substance Use Type: None Hx Substance Use Treatment: No Review of Systems - Review of Systems Comments:: 10/31/17 12:53 GENERAL/CONSTITUTIONAL: No fever or chills. No weakness. HEAD, EYES, EARS, NOSE AND THROAT: No change in vision. No ear pain or discharge. No sore throat.- CARDIOVASCULAR: No chest pain or shortness of breath RESPIRATORY: No cough, wheezing, or hemoptysis. GASTROINTESTINAL: + Abdominal pain. + nausea. No vomiting, diarrhea or constipation. GENITOURINARY: No dysuria, frequency, or change in urination. MUSCULOSKELETAL: No joint or muscle swelling or pain. No neck or back pain. SKIN: No rash NEUROLOGIC: No headache, vertigo, loss of consciousness, or change in strength/ sensation. ENDOCRINE: No increased thirst. No abnormal weight change HEMATOLOGIC/LYMPHATIC: No anemia, easy bleeding, or history of blood clots. ALLERGIC/IMMUNOLOGIC: No hives or skin allergy. *Physical Exam - Vital Signs Last Vital Signs Temp Pulse Resp BP Pulse Ox 98.0 F 71 18 128/77 100 10/31/17 11:29 10/31/17 11:29 10/31/17 11:29 10/31/17 11:29 10/31/17 11:29 - Physical Exam Comments: 10/31/17 12:54 GENERAL: Awake, alert, and fully oriented, in no acute distress HEAD: No signs of trauma, normocephalic, atraumatic EYES: PERRLA, EOMI, sclera anicteric, conjunctiva clear ENT: Hearing grossly normal, nares patent, oropharynx clear without exudates. Moist mucosa NECK: Normal ROM, supple, no lymphadenopathy, JVD, or masses LUNGS: No distress, speaks full sentences, clear to auscultation bilaterally HEART: Regular rate and rhythm, normal S1 and S2, no murmurs, rubs or gallops, peripheral pulses normal and equal bilaterally. ABDOMEN: Soft, nontender, normoactive bowel sounds. No guarding, no rebound. No masses. Neg CVA ttp. Neg Barrera sign, Neg Mcburney point ttp. EXTREMITIES : Normal inspection, Normal range of motion, no edema. No clubbing or cyanosis. SKIN: Warm, Dry, normal turgor, no rashes or lesions noted. ED Treatment Course - LABORATORY CBC & Chemistry Diagram: 10/31/17 13:00 10/31/17 13:00 Medical Decision Making - Medical Decision Making 10/31/17 13:19 47 yo F s/p panniculectomy and liposuction "tummy tuck" procedure 05/10/17/ [facility] complicated by enterocolitis 2/2 c.dif who presents with 1 1/2 week of diffuse abdominal bloating and dull, unremitting, generalized abdominal pain, worse with supine positioning. + Nasuea without vomiting. Denies constipation, diarrhea, BPR, dark stools, dysuria, hematuria, vaginal bleeding, pelvic pain. Physical exam unremarkable. Patient referred her by GI physician Dr. Paul Cho for CT AP CON and CeA, CA-125, and CA19-9 testing. ED Course: CBC, CMP, Lipase, UA, Serum Preg CeA, CA-125, CA19-9 CT AP CON 10/31/17 14:15 CBC, CMP, lipase: Neg 10/31/17 16:04 CT AP: No bowel obx, bowel wall thickening. Left adenexal cystic lesion. Multiple hepatic cyst. Patient stable upon reassessment. Will discharge with return precautions and advised to f/u outpatient with Dr. Cho. *DC/Admit/Observation/Transfer Diagnosis at time of Disposition: Abdominal pain Qualifiers: Abdominal location: generalized Qualified Code(s): R10.84 - Generalized abdominal pain - Discharge Dispostion Disposition: HOME Condition at time of disposition: Stable Admit: No - Referrals Referrals: Clayton Fletcher MD [Primary Care Provider] - - Patient Instructions Additional Instructions: Please return to the emergency department with any new or worsening symptoms or concerns. - Post Discharge Activity - Attestations Physician Attestion: 10/31/17 16:12 I attest to the documentation provided in this note.
--- NOTE | 2017-10-31 13:08 | PDOC ---
Attending Attestation - HPI HPI: 10/31/17 13:19 The patient is a 47 year old female, with a significant past medical history of tumderrick fu (April 2017), colitis secondary to C.Diff (requiring Antibiotics x3 followed by a hospital admission for IV Abx), who presents to the emergency department with diffuse abdominal bloating, as well as, a constant, dull, and diffuse abdominal pain since 10/21/17. She states her abdominal pain is worse when lying flat. She states she has to get up every hour or so to alleviate her pain. She states she has been eating light and cut-out dairy or greasy foods since. She reportedly has an ultrasound of her abdomen last week which was normal. She states Dr. Cho referred her to the ED with prescriptions for CT abdomen and pelvis (w/ contrast), and CeA, CA-125, and CA19-9 testing. She denies chest pain, shortness of breath, headache and dizziness. She denies fever, chills, nausea, vomit, diarrhea and constipation. She denies dysuria, frequency, urgency and hematuria. PCP - Dr. Fletcher GI: Dr. Cho Surgeon: Dr. Jones - Physicial Exam PE: 10/31/17 13:20 Vitals: Triage vital signs reviewed General Appearance: No acute distress, well nourished, well developed Head: Atraumatic Neck: Supple; No nuchal rigidity Chest Wall: Nontender Cardiac: Regular rate and rhythm, no murmurs, no rubs, no gallops Lungs: Clear to auscultation bilateral, good air movement bilaterally Abdomen: (+) Suprapubic abdominal tenderness, diffuse abdominal discomfort to palpation, no rebound or guarding. Soft, nondistended, normal bowel sounds, Genitourinary: Rectal: Exam deferred Extremities: Full range of motion to all extremities, no cyanosis, clubbing, or edema Skin: Warm and dry, no rashes or lesions, no rash, no petechiae Neuro: AOX3; Cranial Nerves 2-12 grossly intact, Strength intact to all extremities, Sensation intact to all extremities, gait normal Psych: Normal mood, normal affect - Medical Decision Making 10/31/17 13:21 Documentation prepared by Juliette Cardozo, acting as diploma medical assistant for Anselmo Oconnor MD, <Juliette Cardozo - Last Filed: 10/31/17 13:24> - Resident Resident Name: Juan David Hwang - ED Attending Attestation I have performed the following: I have examined & evaluated the patient, The case was reviewed & discussed with the resident, I agree w/resident's findings & plan, Exceptions are as noted - Medical Decision Making 10/31/17 14:22 With long-standing history of abdominal pain status post multiple episodes of C. difficile status post tummy tuck Sent to the emergency department by gastroenterology for CT abdomen and pelvis oral IV contrast. 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 D/W GI recomends flagyl. Will f/u cancer markers Findings need for followup and strict return instructions d/w pt. 10/31/17 17:07 <Anselmo Oconnor - Last Filed: 10/31/17 17:07>
[2017-10-31 13:14] LABS: MCH 28.8 pg (25.7-33.7); MEAN CELL VOLUME 87.2 fl (80-96); MEAN PLT VOLUME 7.7 fl (7.5-11.1); NEUTROPHILS 53.7 % (42.8-82.8); PLATELET COUNT 383 K/MM3 (134-434); RDW 14.8 % (11.6-15.6); WHITE BLOOD COUNT 8.8 K/mm3 (4.0-10.0)
[2017-10-31 14:05] LABS: ALBUMIN 3.6 g/dl (3.4-5.0); ALK PHOS 100 U/L (45-117); ANION GAP 6 (8-16); BILIRUBIN,TOTAL 0.4 mg/dL (0.2-1.0); CALCIUM 8.9 mg/dL (8.5-10.1); CO2 27 mmol/L (21-32); CREATININE 0.7 mg/dL (0.55-1.02); GLUCOSE,RANDOM 83 mg/dL (74-106); SGOT/AST 5 U/L (15-37); SGPT/ALT 13 U/L (12-78); TOT PROT 7.9 g/dl (6.4-8.2)
== END 2017-10-31 17:15 | disposition home or self-care (01) ==
LOC: JER 11:25
DX: R10.84 Generalized abdominal pain (principal); K21.9 Gastro-esophageal reflux disease without esophagitis; R73.03 Prediabetes
CPT/HCPCS: 36415; 74177-TC; 80053; 82378; 83690; 84703; 85025; 86301; 86304; 99282-25; Q9967

== ENCOUNTER 2018-05-24 11:20 | Day surgery (SDC) | payer OTHER ==
[2018-05-24 11:50] VITALS: BMI 29.9
--- NOTE | 2018-05-24 11:55 | PROC ---
Endoscopy Procedure Endoscopy procedure completed. Please see scanned procedure report.
[2018-05-24 12:55] VITALS: TEMP 98
[2018-05-24 13:48] VITALS: BP 105/68; PULSE 71
--- NOTE | 2018-05-25 17:44 | PATH ---
Surgical Pathology Report Patient Name: EDD HERMAN [facility]. Rec. #: [id number] /Age/Gender: 1970 (Age: 47) / F Account: [id number] Location: [facility]-ENDOSCOPY Taken: 05/24/2018 Received: 05/24/2018 Reported: 05/25/2018 Physicians: Aureliano Jernigan M.D. Specimen(s) Received A: BX 2ND PORTION DUODENUM B: BX ANTRUM AND BODY Clinical History Cystic disease of liver, history of colon polyp Postoperative diagnosis: Gastritis, normal colon Final Diagnosis A. SECOND PORTION DUODENUM, BIOPSY: DUODENAL MUCOSA WITH MILD CHRONIC DUODENITIS. B. ANTRUM AND BODY, BIOPSY: GASTRIC MUCOSA WITH MILD CHRONIC INFLAMMATION. IMMUNOSTAIN IS NEGATIVE FOR H. PYLORI ORGANISMS. Electronically Signed Judd Barahona M.D. Gross Description A. Received in formalin, labeled "biopsy second portion of duodenum" are 2 yoder, irregular portions of soft tissue measuring 0.2 and 0.3 cm. in greatest dimension. The specimens are submitted in toto in one cassette. B. Received in formalin, labeled "biopsy antrum and body" are 2 yoder, irregular portions of soft tissue measuring 0.3 and 0.4 cm. in greatest dimension. The specimens are submitted in toto in one cassette. 05/24/2018 [facility]05/24/2018
== END 2018-05-24 13:49 | disposition home or self-care (01) ==
LOC: JASU-ENDO 11:20
PROVIDERS: ATTEND Internal Medicine Gastroenterology
PROC: 0DB98ZX Excision of Duodenum, Via Natural or Artificial Opening Endoscopic, Diagnostic (ICD-10-PCS; 2018-05-24)
PROC: 0DB68ZX Excision of Stomach, Via Natural or Artificial Opening Endoscopic, Diagnostic (ICD-10-PCS; 2018-05-24)
PROC: 0DJD8ZZ Inspection of Lower Intestinal Tract, Via Natural or Artificial Opening Endoscopic (ICD-10-PCS; principal; 2018-05-24 12:00)
DX: Z12.11 Encounter for screening for malignant neoplasm of colon (principal); Z80.0 Family history of malignant neoplasm of digestive organs; K29.70 Gastritis, unspecified, without bleeding
CPT/HCPCS: 43239; G0105; 84703

== ENCOUNTER 2019-05-06 18:43 | Emergency (ER) | payer OTHER | END 2019-05-07 00:20 | disposition home or self-care (01) | LOC: JER 05-07 00:20 | DX: K76.89 Other specified diseases of liver (principal); K21.9 Gastro-esophageal reflux disease without esophagitis; Z86.010 Personal history of colon polyps ==

== ENCOUNTER 2019-10-21 11:18 | Emergency (ER) | payer OTHER ==
[2019-10-21 11:31] VITALS: BP 122/74; PULSE 80; TEMP 97.8; BMI 32.0
[2019-10-21] MEDS ORDERED: KETOROLAC TROMETHAMINE 30 MG/1 ML VIAL IVPUSH ONE (11:43)
[2019-10-21] MEDS ORDERED: ONDANSETRON 4 MG/2 ML VIAL IVPUSH ONE (11:43)
[2019-10-21] MEDS ORDERED: SODIUM CHLORIDE 1,000 ML IV STA (11:43)
[2019-10-21] MEDS ORDERED: ONDANSETRON 4 MG/2 ML VIAL ONE (12:28)
[2019-10-21] MEDS ORDERED: KETOROLAC TROMETHAMINE 30 MG/1 ML VIAL ONE (12:28)
[2019-10-21 13:06] LABS: BASO % 0.6 % (0-2.0); EOS % 2.6 % (0-4.5); HEMATOCRIT 35.9 % (32.4-45.2); LYMPH % 31.9 % (8-40); MCH 28.6 pg (25.7-33.7); MCHC 33.3 g/dl (32.0-36.0); MEAN CELL VOLUME 85.8 fl (80-96); MEAN PLT VOLUME 7.7 fl (7.5-11.1); MONO % 8.4 % (3.8-10.2); NEUT % 56.5 % (42.8-82.8); PH,URINE 6.5 (5.0-8.0); PLATELET COUNT 424 K/MM3 (134-434); RBC 4.19 M/mm3 (3.60-5.2); RDW 16.2 % (11.6-15.6); URINE APPEARANCE CLEAR; URINE BILIRUBIN NEGATIVE (NEGATIVE); URINE COLOR YELLOW; URINE GLUCOSE (UA) NEGATIVE (NEGATIVE); URINE KETONE NEGATIVE (NEGATIVE); URINE LEUK ESTERASE NEGATIVE (NEGATIVE); URINE NITRITE NEGATIVE (NEGATIVE); URINE PROTEIN NEGATIVE (NEGATIVE); URINE UROBILINOGEN 0.2 mg/dL (0.2-1.0); WHITE BLOOD COUNT 10.1 K/mm3 (4.0-10.0)
--- NOTE | 2019-10-21 13:08 | PDOC ---
History of Present Illness - General Chief Complaint: Pain Stated Complaint: ABD TENDERNESS/UNCOMFORTABLE Time Seen by Provider: 10/21/19 11:32 History Source: Patient Exam Limitations: No Limitations - History of Present Illness Travel History: No Initial Comments: 10/21/19 12:03 49 y/o female presents to ED with complaints of generalized abdominal bloating with mild cramping associated mild nausea for the past week. Patient states started Cipro and Flagyl since she states has history of diverticulitis and has been taking it for the past 4 days prescribed by a new GI, Dr. Oneil whom she saw for the 1st time last week with no improvement. Patient denies diarrhea , fever, chills but states generalized weakness. patient also denies recent travel, or recent illness. Timing/Duration: reports: constant Quality: reports: mild, cramping Abdominal Pain Onset Location: reports: generalized abdomen Pain Radiation: reports: LLQ Activities at Onset: reports: none Aggravating Factors: improves with: None Alleviating Factors: improves with: None Past History - Travel Traveled outside of the country in the last 30 days: No Close contact w/someone who was outside of country & ill: No - Past Medical History Allergies/Adverse Reactions: Allergies Allergy/AdvReac Type Severity Reaction Status Date / Time tetracycline Allergy Verified 10/21/19 11:31 Home Medications: Ambulatory Orders Ibuprofen [Motrin -] 400 mg PO Q6H PRN #0 tablet 06/21/17 Loratadine [Claritin] 10 mg PO PRN 05/24/18 Famotidine/Ca Carb/Mag Hydrox [Pepcid Complete Tablet Chew] 1 each PO TID #30 tab.chew 05/06/19 Ondansetron [Zofran *Odt*] 8 mg SL TID #20 od.tablet 05/06/19 Anemia: No Asthma: No Cancer: No Cardiac Disorders: No CVA: No COPD: No CHF: No Dementia: No Diabetes: (BORDERLINE) GI Disorders: Yes (GERD, GASTRIC AND COLON POLYS) Disorders: No HTN: No Hypercholesterolemia: No Liver Disease: No Seizures: No Thyroid Disease: No - Surgical History Abdominal Surgery: Yes (TUMMY TUCK, CDIFF AFTER) Appendectomy: No Cardiac Surgery: No Cholecystectomy: No Lung Surgery: No Neurologic Surgery: No Orthopedic Surgery: No - Psycho Social/Smoking Cessation Hx Smoking Status: No Smoking History: Never smoked Have you smoked in the past 12 months: No Number of Cigarettes Smoked Daily: 0 Hx Alcohol Use: No Drug/Substance Use Hx: No Substance Use Type: None Hx Substance Use Treatment: No Review of Systems - Review of Systems Able to Perform ROS?: No Is the patient limited Guatemalan proficient: No Constitutional: Yes: Loss of Appetite, Weakness HEENTM: No: Symptoms Reported Respiratory: No: Symptoms reported Cardiac (ROS): No: Symptoms Reported ABD/GI: Yes: Nausea, Poor Appetite, Poor Fluid Intake, Abdominal cramping. No: Constipated, Diarrhea : No: Symptoms Reported Musculoskeletal: No: Symptoms Reported Integumentary: No: Symptoms Reported Neurological: No: Headache Hematologic/Lymphatic: No: Symptoms Reported *Physical Exam - Vital Signs Last Vital Signs Temp Pulse Resp BP Pulse Ox 97.8 F 80 18 122/74 98 10/21/19 11:28 10/21/19 11:28 10/21/19 11:28 10/21/19 11:28 10/21/19 11:28 - Physical Exam General Appearance: Yes: Nourished, Appropriately Dressed. No: Apparent Distress Neck: positive: Normal Thyroid Respiratory/Chest: positive: Lungs Clear, Normal Breath Sounds. negative: Respiratory Distress, Accessory Muscle Use Cardiovascular: positive: Regular Rhythm, Regular Rate. negative: Murmur Gastrointestinal/Abdominal: positive: Soft, Tenderness (Left lower quadrant) Musculoskeletal: negative: CVA Tenderness Extremity: positive: Normal Inspection Integumentary: positive: Normal Color, Warm, Moist Neurologic: positive: Motor Strength 5/5 ( ambulatory) ED Treatment Course - LABORATORY CBC & Chemistry Diagram: 10/21/19 12:34 10/21/19 12:34 - RADIOLOGY Radiology Studies Ordered: Category Date Time Status ABDOMEN & PELVIS CT W/O CONTR [CT] Stat CT Scan 10/21/19 11:53 Ordered - Medications Given in the ED: ED Medications Discontinued Medications Generic Name Dose Route Start Last Admin Trade Name Freq PRN Reason Stop Dose Admin Sodium Chloride 1,000 mls @ 1,000 mls/hr 10/21/19 11:43 10/21/19 12:48 Normal Saline - IV 10/21/19 12:42 1,000 mls/hr ASDIR STA Administration Ketorolac Tromethamine 30 mg 10/21/19 11:43 10/21/19 12:48 Toradol Injection - IVPUSH 10/21/19 11:44 30 mg ONCE ONE Administration Ondansetron HCl 4 mg 10/21/19 11:43 10/21/19 12:48 Zofran Injection IVPUSH 10/21/19 11:44 4 mg ONCE ONE Administration Medical Decision Making - Medical Decision Making 10/21/19 12:12 Chief complaint: Abdominal bloating/pain, nausea for the past week now on Cipro and Flagyl for 4 days with no improvement patient also states generalized weakness. Exam: Vital stable. left lower quadrant tenderness on exam Plan: Labs, urine IV fluids, Zofran, Toradol and abdominal CT ordered 10/21/19 15:53 Laboratory Tests 10/21/19 10/21/19 10/21/19 12:34 12:34 12:34 Hgb 12.0 Hct 35.9 RDW 16.2 H MPV 7.7 Absolute Neuts (auto) 5.7 Sodium 137 Potassium 4.1 Chloride 105 Carbon Dioxide 26 Anion Gap 6 L BUN 15.7 Creatinine 0.6 Random Glucose 89 Calcium 8.8 Magnesium 2.4 Total Bilirubin 0.1 L AST 19 ALT 19 Alkaline Phosphatase 106 Total Protein 8.0 Albumin 3.7 Lipase 118 Urine Ketones Urine Nitrite Urine HCG, Qual 10/21/19 10/21/19 12:34 12:34 Hgb Hct RDW MPV Absolute Neuts (auto) Sodium Potassium Chloride Carbon Dioxide Anion Gap BUN Creatinine Random Glucose Calcium Magnesium Total Bilirubin AST ALT Alkaline Phosphatase Total Protein Albumin Lipase Urine Ketones Negative Urine Nitrite Negative Urine HCG, Qual Negative CT shows no specific acute pathology identified. Diverticulosis without evidence of diverticulitis. Normal appendix. Possible tiny left lower pole renal stone. Patient states is in the process of seeing a new potato grader and had lab work done including IgA, ESR and CRP which all were elevated. I have discussed other possibilities with patient who she states will follow up with the potato grader in 2 weeks. Patient recommended to stop taking the Cipro and Flagyl. Patient will be given some information on celiac disease. Discharge - Discharge Information Problems reviewed: Yes Clinical Impression/Diagnosis: Abdominal bloating with cramps Condition: Improved Disposition: HOME - Follow up/Referral Referrals: Clayton Fletcher MD [Primary Care Provider] - - Patient Discharge Instructions Patient Printed Discharge Instructions: DI for Celiac Disease, Defining Tolerable Amount of Gluten for People With Celiac Disease Additional Instructions: Please read over information regards to celiac disease although you are not officially diagnosed you with it . Please follow-up with a potato grader to review the labs drawn last week with him. In regards to antibiotics at this time I recommend stop taking the Flagyl and Cipro. - Post Discharge Activity
[2019-10-21 13:35] LABS: MAGNESIUM 2.4 mg/dL (1.8-2.4)
[2019-10-21 13:44] LABS: ALBUMIN 3.7 g/dl (3.4-5.0); BILIRUBIN,TOTAL 0.1 mg/dL (0.2-1); BLOOD UREA NITROGEN 15.7 mg/dL (7-18); CALCIUM 8.8 mg/dL (8.5-10.1); CREATININE 0.6 mg/dL (0.55-1.3); POTASSIUM 4.1 mmol/L (3.5-5.1)
--- NOTE | 2019-10-21 14:58 | PDOC ---
*Physical Exam - Vital Signs Last Vital Signs Temp Pulse Resp BP Pulse Ox 97.8 F 80 18 122/74 98 10/21/19 11:28 10/21/19 11:28 10/21/19 11:28 10/21/19 11:28 10/21/19 11:28 ED Treatment Course - LABORATORY CBC & Chemistry Diagram: 10/21/19 12:34 10/21/19 12:34 - ADDITIONAL ORDERS Additional order review: Laboratory Results 10/21/19 10/21/19 10/21/19 12:34 12:34 12:34 Sodium Potassium Chloride Carbon Dioxide Anion Gap BUN Creatinine Est GFR (CKD-EPI)AfAm Est GFR (CKD-EPI)NonAf Random Glucose Calcium Magnesium 2.4 Total Bilirubin AST ALT Alkaline Phosphatase Total Protein Albumin Lipase 118 Urine Color Yellow Urine Appearance Clear Urine pH 6.5 Ur Specific [place] 1.008 L Urine Protein Negative Urine Glucose (UA) Negative Urine Ketones Negative Urine Blood Negative Urine Nitrite Negative Urine Bilirubin Negative Urine Urobilinogen 0.2 Ur Leukocyte Esterase Negative Urine HCG, Qual Negative 10/21/19 12:34 Sodium 137 Potassium 4.1 Chloride 105 Carbon Dioxide 26 Anion Gap 6 L BUN 15.7 Creatinine 0.6 Est GFR (CKD-EPI)AfAm 122.32 Est GFR (CKD-EPI)NonAf 105.54 Random Glucose 89 Calcium 8.8 Magnesium Total Bilirubin 0.1 L AST 19 ALT 19 Alkaline Phosphatase 106 Total Protein 8.0 Albumin 3.7 Lipase Urine Color Urine Appearance Urine pH Ur Specific [place] Urine Protein Urine Glucose (UA) Urine Ketones Urine Blood Urine Nitrite Urine Bilirubin Urine Urobilinogen Ur Leukocyte Esterase Urine HCG, Qual 10/21/19 12:34 RBC 4.19 MCV 85.8 MCHC 33.3 RDW 16.2 H MPV 7.7 Neutrophils % 56.5 Lymphocytes % 31.9 D Monocytes % 8.4 Eosinophils % 2.6 D Basophils % 0.6 - Medications Given in the ED: ED Medications Discontinued Medications Generic Name Dose Route Start Last Admin Trade Name Freq PRN Reason Stop Dose Admin Sodium Chloride 1,000 mls @ 1,000 mls/hr 10/21/19 11:43 10/21/19 12:48 Normal Saline - IV 10/21/19 12:42 1,000 mls/hr ASDIR STA Administration Ketorolac Tromethamine 30 mg 10/21/19 11:43 10/21/19 12:48 Toradol Injection - IVPUSH 10/21/19 11:44 30 mg ONCE ONE Administration Ondansetron HCl 4 mg 10/21/19 11:43 10/21/19 12:48 Zofran Injection IVPUSH 10/21/19 11:44 4 mg ONCE ONE Administration Medical Decision Making - Medical Decision Making 10/21/19 14:56 Patient seen and evaluated with the nurse practitioner. I agree with the overall evaluation, assessment, and management with the following summary of visit: 49-year-old female recently diagnosed diverticulitis on Cipro and Flagyl presents with abdominal cramping, tenderness in left lower quadrant. Labs as noted with white blood cell count 10.1, chemistries and urinalysis otherwise within normal limits. CT of the abdomen and pelvis performed Reassess, disposition accordingly. Rule out complication of diverticulitis, discuss disposition with PCP and GI. Discharge - Discharge Information Clinical Impression/Diagnosis: Diverticulitis - Follow up/Referral Referrals: Clayton Fletcher MD [Primary Care Provider] - - Patient Discharge Instructions - Post Discharge Activity
== END 2019-10-21 16:10 | disposition home or self-care (01) ==
LOC: JER 11:18
PROC: 3E0333Z Introduction of Anti-inflammatory into Peripheral Vein, Percutaneous Approach (ICD-10-PCS; principal; 2019-10-21)
PROC: 3E033GC Introduction of Other Therapeutic Substance into Peripheral Vein, Percutaneous Approach (ICD-10-PCS; 2019-10-21)
DX: K57.92 Diverticulitis of intestine, part unspecified, without perforation or abscess without bleeding (principal); E11.9 Type 2 diabetes mellitus without complications; K21.9 Gastro-esophageal reflux disease without esophagitis; Z87.19 Personal history of other diseases of the digestive system; Z88.1 Allergy status to other antibiotic agents
CPT/HCPCS: 36415; 74176-TC; 80053; 81003; 83690; 83735; 84703; 85025; 87086; 87186; 99282-25; J7030

== ENCOUNTER 2019-11-29 11:13 | Day surgery (SDC) | payer OTHER ==
[~2019-11-29 11:13] MED LIST: FERRIC CARBOXYMALTOSE 750 MG in SODIUM CHLORIDE 250 ML IVPB ONE
[2019-11-29 12:31] VITALS: TEMP 97.9
[2019-11-29 12:32] VITALS: BP 104/63; PULSE 72
== END 2019-11-29 13:03 | disposition home or self-care (01) ==
LOC: JINFUSION 11:13
PROVIDERS: ATTEND Family Medicine
DX: D50.9 Iron deficiency anemia, unspecified (principal)
CPT/HCPCS: 96365; J1439

== ENCOUNTER 2019-12-06 08:29 | Day surgery (SDC) | payer OTHER ==
[2019-12-06] MEDS ORDERED: FERRIC CARBOXYMALTOSE 750 MG in SODIUM CHLORIDE 250 ML IVPB ONE (08:30)
[2019-12-06 09:37] VITALS: TEMP 98.6
[2019-12-06 10:24] VITALS: BP 111/52; PULSE 82
== END 2019-12-06 10:25 | disposition home or self-care (01) ==
LOC: JINFUSION 08:29
PROVIDERS: ATTEND Family Medicine
PROC: 3E033GC Introduction of Other Therapeutic Substance into Peripheral Vein, Percutaneous Approach (ICD-10-PCS; principal; 2019-12-06)
DX: D50.9 Iron deficiency anemia, unspecified (principal)
CPT/HCPCS: 81025; 96365; J1439

== ENCOUNTER 2021-09-19 17:12 | Emergency (ER) | payer OTHER ==
[2021-09-19 17:20] VITALS: TEMP 97; BMI 32.7
[2021-09-19] MEDS ORDERED: FAMOTIDINE 20 MG/50 ML IVPB 20 MG/50 ML MG IVPB ONE ×2 (19:16→20:20)
[2021-09-19] MEDS ORDERED: ACETAMINOPHEN 1000 MG/100 ML VIAL IVPB ONE (19:16)
[2021-09-19] MEDS ORDERED: SODIUM CHLORIDE 0.9% 1000 ML INFUS.BAG IV ONE (19:16)
[2021-09-19] MEDS ORDERED: MAG HYDROX/AL HYDROX/SIMETH -MYLANTA- ORAL SUSPENSION PO ONE (19:16)
[2021-09-19] MEDS ORDERED: ONDANSETRON 4 MG/2 ML VIAL IVPUSH ONE (19:33)
[2021-09-19 19:44] LABS: EPI CELLS 4 /uL (0-25.1); HYALINE CASTS 0 /uL (0-3.1); URINE APPEARANCE CLEAR; URINE BACTERIA 2 /uL (0-1359); URINE BILIRUBIN NEGATIVE (NEGATIVE); URINE COLOR YELLOW; URINE GLUCOSE (UA) NEGATIVE (NEGATIVE); URINE KETONE NEGATIVE (NEGATIVE); URINE LEUK ESTERASE TRACE (NEGATIVE); URINE NITRITE NEGATIVE (NEGATIVE); URINE PROTEIN NEGATIVE (NEGATIVE); URINE RBC 10 /uL (0-23.9); URINE UROBILINOGEN 0.2 mg/dL (0.2-1.0); URINE WBC 11 /uL (0-25.8)
[2021-09-19 19:50] LABS: EOS % 1.9 % (0-4.5); HEMATOCRIT 35.7 % (32.4-45.2); HEMOGLOBIN 12.5 GM/dL (10.7-15.3); LYMPH % 24.3 % (8-40); MCH 30.7 pg (25.7-33.7); MEAN CELL VOLUME 87.9 fl (80-96); MEAN PLT VOLUME 7.6 fl (7.5-11.1); MONO % 8.9 % (3.8-10.2); NEUT % 63.9 % (42.8-82.8); PLATELET COUNT 420 10^3/uL (134-434); RBC 4.06 M/mm3 (3.60-5.2); RDW 13.9 % (11.6-15.6); WHITE BLOOD COUNT 10.5 K/mm3 (4.0-10.0)
[2021-09-19 20:13] LABS: ALBUMIN 3.2 g/dl (3.4-5.0); BLOOD UREA NITROGEN 13.7 mg/dL (7-18)
[2021-09-19 20:16] LABS: CREATININE 0.9 mg/dL (0.55-1.3)
[2021-09-19 20:17] LABS: BILIRUBIN,TOTAL 0.2 mg/dL (0.2-1); TOT PROT 7.4 g/dl (6.4-8.2)
[2021-09-19] MEDS ORDERED: ONDANSETRON 4 MG/2 ML VIAL ONE (20:19)
[2021-09-19] MEDS ORDERED: MAG HYDROX/AL HYDROX/SIMETH 30 ML UNIT-DOSE CUP ONE (20:19)
[2021-09-19] MEDS ORDERED: ACETAMINOPHEN INJECTION 100 ML IVPB ONE (20:19)
[2021-09-19 22:35] VITALS: BP 125/82; PULSE 72
== END 2021-09-19 23:10 | disposition home or self-care (01) ==
LOC: JER 17:12
PROC: 3E033GC Introduction of Other Therapeutic Substance into Peripheral Vein, Percutaneous Approach (ICD-10-PCS; principal; 2021-09-19)
DX: R10.84 Generalized abdominal pain (principal); N93.9 Abnormal uterine and vaginal bleeding, unspecified
CPT/HCPCS: 36415; 74177-TC; 76830-TC; 80053; 81003; 83690; 84703; 85025; 87086; 96365; 96375; 99285-25; J0131; Q9967

== ENCOUNTER 2023-01-12 19:56 | Emergency (ER) | payer OTHER ==
[2023-01-12 20:01] VITALS: BP 116/66; PULSE 92; RESP 18; TEMP 98; BMI 33.3
[2023-01-12] MEDS ORDERED: ACETAMINOPHEN 1000 MG/100 ML BAG IVPB ONE (20:43)
[2023-01-12] MEDS ORDERED: MAG HYDROX/AL HYDROX/SIMETH 30 ML UNIT-DOSE CUP PO ONE (20:44)
[2023-01-12] MEDS ORDERED: FAMOTIDINE 20 MG TABLET PO ONE (20:44)
[2023-01-12] MEDS ORDERED: LACTATED RINGERS SOLUTION 1000 ML INFUS.BAG IV ONE (20:45)
[2023-01-12] MEDS ORDERED: ACETAMINOPHEN INJECTION 100 ML IVPB ONE (20:50)
[2023-01-12] MEDS ORDERED: FAMOTIDINE 20 MG TABLET ONE (20:50)
[2023-01-12] MEDS ORDERED: MAG HYDROX/AL HYDROX/SIMETH 30 ML UNIT-DOSE CUP ONE (20:50)
[2023-01-12 21:32] LABS: PH,URINE 6.5 (5.0-8.0); URINE APPEARANCE CLEAR; URINE BILIRUBIN NEGATIVE (NEGATIVE); URINE COLOR YELLOW; URINE GLUCOSE (UA) NEGATIVE (NEGATIVE); URINE KETONE NEGATIVE (NEGATIVE); URINE LEUK ESTERASE NEGATIVE (NEGATIVE); URINE NITRITE NEGATIVE (NEGATIVE); URINE PROTEIN NEGATIVE (NEGATIVE); URINE UROBILINOGEN 0.2 mg/dL (0.2-1.0)
[2023-01-12 21:33] LABS: BASO % 1.3 % (0-2.0); EOS % 3.3 % (0-4.5); HEMOGLOBIN 12.9 GM/dL (10.7-15.3); LYMPH % 30.7 % (8-40); MCHC 34.8 g/dl (32.0-36.0); MEAN CELL VOLUME 86.3 fl (80-96); MEAN PLT VOLUME 7.9 fl (7.5-11.1); MONO % 8.4 % (3.8-10.2); NEUT % 56.3 % (42.8-82.8); PLATELET COUNT 378 10^3/uL (134-434); RBC 4.29 M/mm3 (3.60-5.2); WHITE BLOOD COUNT 10.5 K/mm3 (4.0-10.0)
[2023-01-12 22:03] LABS: ALBUMIN 3.6 g/dl (3.4-5.0); BLOOD UREA NITROGEN 13.2 mg/dL (7-18); CALCIUM 8.7 mg/dL (8.5-10.1)
[2023-01-12 22:06] LABS: CREATININE 0.7 mg/dL (0.55-1.3)
[2023-01-12 22:09] LABS: BILIRUBIN,TOTAL 0.2 mg/dL (0.2-1); TOT PROT 7.8 g/dl (6.4-8.2)
== END 2023-01-13 00:51 | disposition home or self-care (01) ==
LOC: JER 19:56
PROC: 3E0333Z Introduction of Anti-inflammatory into Peripheral Vein, Percutaneous Approach (ICD-10-PCS; principal; 2023-01-12)
DX: R10.13 Epigastric pain (principal)
CPT/HCPCS: 36415; 74177-TC; 80053; 81003; 83605; 83690; 85025; 87086; 93005; 93010; 99285-25; Q9967

== ENCOUNTER 2023-11-24 18:10 | Emergency (ER) | payer OTHER ==
[2023-11-24 18:16] VITALS: BMI 32.5
[2023-11-24 19:11] VITALS: BP 125/85; PULSE 71; TEMP 98
[2023-11-24 19:26] VITALS: RESP 16
[2023-11-24] MEDS ORDERED: ONDANSETRON 4 MG/2 ML VIAL IVPUSH ONE (19:53)
[2023-11-24] MEDS ORDERED: LACTATED RINGERS SOLUTION 1000 ML INFUS.BAG IV ONE (19:53)
[2023-11-24] MEDS ORDERED: ACETAMINOPHEN 1000 MG/100 ML BAG IVPB ONE (19:53)
[2023-11-24] MEDS ORDERED: FAMOTIDINE 20 MG/50 ML IVPB 20 MG/50 ML MG IVPB ONE ×2 (19:53→20:28)
[2023-11-24] MEDS ORDERED: ONDANSETRON 4 MG/2 ML VIAL ONE (20:00)
[2023-11-24] MEDS ORDERED: ACETAMINOPHEN INJECTION 100 ML IVPB ONE (20:00)
[2023-11-24 20:22] LABS: HEMATOCRIT 40.9 % (32.4-45.2); MCH 30.6 pg (25.7-33.7); MCHC 34.2 g/dl (32.0-36.0); MEAN CELL VOLUME 89.8 fl (80-96); MEAN PLT VOLUME 8.2 fl (7.5-11.1); RBC 4.56 10^6/uL (3.60-5.2); RDW 13.7 % (11.6-15.6); WHITE BLOOD COUNT 10.3 10^3/uL (4.0-10.8)
[2023-11-24 20:30] LABS: PLATELET ESTIMATE ADEQUATE
[2023-11-24 20:39] LABS: ALBUMIN 4.5 g/dl (3.4-5.0); BILIRUBIN,TOTAL 0.3 mg/dl (0.2-1); CALCIUM 9.9 mg/dl (8.5-10.1); CREATININE 0.7 mg/dl (0.6-1.3); POTASSIUM 4.2 mmol/L (3.5-5.1); TOT PROT 8.1 g/dl (6.4-8.2)
== END 2023-11-24 22:15 | disposition home or self-care (01) ==
LOC: FER 18:10
PROC: 3E033GC Introduction of Other Therapeutic Substance into Peripheral Vein, Percutaneous Approach (ICD-10-PCS; principal; 2023-11-24)
PROC: 3E033NZ Introduction of Analgesics, Hypnotics, Sedatives into Peripheral Vein, Percutaneous Approach (ICD-10-PCS; 2023-11-24)
PROC: 3E033GC Introduction of Other Therapeutic Substance into Peripheral Vein, Percutaneous Approach (ICD-10-PCS; 2023-11-24)
DX: R10.84 Generalized abdominal pain (principal); R11.0 Nausea; K59.09 Other constipation
CPT/HCPCS: 36415; 74177-TC; 80053; 83690; 85027; 99285-25; Q9967

== ENCOUNTER 2024-04-09 10:45 | Emergency (ER) | payer OTHER ==
[2024-04-09 11:14] VITALS: BP 135/58; PULSE 80; RESP 17; TEMP 98.5; BMI 32.3
[2024-04-09] MEDS: SODIUM CHLORIDE 1,000 ML IV ONE (11:40)
[2024-04-09 12:20] LABS: HEMATOCRIT 43.5 % (32.4-45.2); MCH 28.5 pg (25.7-33.7); MCHC 32.3 g/dl (32.0-36.0); MEAN CELL VOLUME 88.4 fl (80-96); MEAN PLT VOLUME 8.1 fl (7.5-11.1); PLATELET COUNT 396.9 10^3/uL (134-434); RBC 4.92 10^6/uL (3.60-5.2); RDW 14.2 % (11.6-15.6); WHITE BLOOD COUNT 9.6 10^3/uL (4.0-10.8)
[2024-04-09 12:37] LABS: ALBUMIN 4.4 g/dl (3.4-5.0); ALK PHOS 89 U/L (45-117); ANION GAP 10 mmol/L (4-13); BILIRUBIN,TOTAL 0.5 mg/dl (0.2-1); CALCIUM 9.8 mg/dl (8.5-10.1); CHLORIDE 99 mmol/L (98-107); CO2 28 mmol/L (21-32); CREATININE 0.7 mg/dl (0.6-1.3); GLUCOSE,RANDOM 90 mg/dl (74-106); POTASSIUM 3.8 mmol/L (3.5-5.1); SGOT/AST 30 U/L (15-37); SGPT/ALT 45 U/L (7-52); SODIUM 137 mmol/L (136-145); TOT PROT 7.5 g/dl (6.4-8.2)
[2024-04-09 12:53] LABS: PLATELET ESTIMATE SLT INCREASE
== END 2024-04-09 13:28 | disposition home or self-care (01) ==
LOC: FER 10:45
PROC: 3E0337Z Introduction of Electrolytic and Water Balance Substance into Peripheral Vein, Percutaneous Approach (ICD-10-PCS; principal; 2024-04-09)
DX: E86.0 Dehydration (principal); R53.1 Weakness; R10.10 Upper abdominal pain, unspecified
CPT/HCPCS: 36415; 80053; 81003; 81015; 85027; 96360; 99284-25

== ENCOUNTER 2024-06-05 11:11 | Emergency (ER) | payer OTHER ==
[2024-06-05 11:16] VITALS: BP 123/84; PULSE 96; RESP 20; TEMP 98.3; BMI 28.7
[2024-06-05] MEDS ORDERED: LIDOCAINE 4% PATCH TP ONE (13:29)
[2024-06-05] MEDS ORDERED: KETOROLAC TROMETHAMINE 30 MG/1 ML VIAL ONE (13:29)
[2024-06-05] MEDS ORDERED: ACETAMINOPHEN 500 MG TABLET (FP) ONE (13:31)
[2024-06-05] MEDS: LIDOCAINE 4% PATCH TP ONE (13:35)
[2024-06-05] MEDS: KETOROLAC TROMETHAMINE 30 MG/1 ML VIAL IM ONE (13:35)
[2024-06-05] MEDS: ACETAMINOPHEN 500 MG TABLET (FP) PO ONE (13:35)
[2024-06-05] MEDS ORDERED: LIDOCAINE PATCH REMOVAL MC ONE (22:00)
== END 2024-06-05 15:10 | disposition home or self-care (01) ==
LOC: JER 11:11
PROC: 3E0133Z Introduction of Anti-inflammatory into Subcutaneous Tissue, Percutaneous Approach (ICD-10-PCS; principal; 2024-06-05)
DX: M54.2 Cervicalgia (principal)
CPT/HCPCS: 99284-25

== ENCOUNTER 2024-06-17 18:39 | Emergency (ER) | payer OTHER ==
[2024-06-17 18:53] VITALS: BP 116/73; PULSE 76; RESP 18; TEMP 98; BMI 28.3
[2024-06-17 20:37] LABS: BASO % 0.8 % (0-2.0); EOS % 3.6 % (0-4.5); HEMATOCRIT 39.4 % (32.4-45.2); HEMOGLOBIN 13.5 GM/dL (10.7-15.3); LYMPH % 34.4 % (8-40); MCH 29.9 pg (25.7-33.7); MCHC 34.2 g/dl (32.0-36.0); MEAN CELL VOLUME 87.5 fl (80-96); MEAN PLT VOLUME 7.9 fl (7.5-11.1); MONO % 7.9 % (3.8-10.2); NEUT % 53.3 % (42.8-82.8); PLATELET COUNT 414 10^3/uL (134-434); RDW 15.2 % (11.6-15.6); WHITE BLOOD COUNT 9.2 K/mm3 (4.0-10.0)
[2024-06-17 20:55] LABS: CHLORIDE 107 mmol/L (98-107); POTASSIUM 4.2 mmol/L (3.5-5.1); SODIUM 140 mmol/L (136-145)
[2024-06-17 20:58] LABS: ALBUMIN 3.9 g/dl (3.4-5.0); ANION GAP 5 mmol/L (4-13); BLOOD UREA NITROGEN 11.1 mg/dL (7-18); CALCIUM 9.2 mg/dL (8.5-10.1); CO2 29 mmol/L (21-32); GLUCOSE,RANDOM 97 mg/dL (74-106); INR 0.94 (0.83-1.09); MAGNESIUM 2.3 mg/dL (1.8-2.4); PROTHROMBIN TIME (PATIENT) 10.6 SEC (9.7-13.0)
[2024-06-17 21:00] LABS: ACTIVATED PTT 34.2 SECONDS (25.2-36.5)
[2024-06-17 21:01] LABS: CREATININE 0.8 mg/dL (0.55-1.3); SGOT/AST 20 U/L (15-37); SGPT/ALT 37 U/L (13-61)
[2024-06-17 21:03] LABS: BILIRUBIN,TOTAL 0.2 mg/dL (0.2-1); TOT PROT 7.7 g/dl (6.4-8.2)
[2024-06-17 21:04] LABS: ALK PHOS 123 U/L (45-117)
== END 2024-06-17 22:19 | disposition home or self-care (01) ==
LOC: JER 18:39
DX: G44.209 Tension-type headache, unspecified, not intractable (principal); M54.2 Cervicalgia; R42 Dizziness and giddiness
CPT/HCPCS: 36415; 70450-TC; 71046-TC-FY; 72125-TC; 80053; 82550; 83735; 84484; 85025; 85610; 85730; 93005; 93010; 99285-25